=== PATIENT | male | born 1965 | race Hispanic/Latino ===

== ENCOUNTER 2023-12-20 15:47 | Inpatient (IN) | payer OTHER ==
[2023-12-20 16:40] LABS: #Basophils Less than 0.03 10x3/uL (0.0-0.2); #Eosinphils Less than 0.03 10x3/uL (0.0-0.7); %Basophils 0.1 % (0.0-1.0); %Eosinophils 0.1 % (0.0-10.0); %Lymphocytes 9.5 % (21.0-51.0); %Monocytes 9.8 % (0.0-10.0); %Neutrophils 80.1 % (42.0-75.0); Hematocrit 42.7 % (42.0-52.0); Hemoglobin 14.6 g/dL (14.0-18.0); Mean Corpuscular HGB CONC 34.2 g/dL (32.0-36.0); Mean Corpuscular Hemoglobin 29.9 pg (27.0-31.0); Mean Corpuscular Volume 87.3 fL (78.0-98.0); Mean Platelet Volume 9.5 fL (7.4-10.4); Platelet Count 341 10x3/uL (130-400); RBC Distribution Width 12.2 % (11.5-14.5); Red Blood Cell (RBC) Count 4.89 mill/uL (4.70-6.10)
[2023-12-20 16:57] LABS: ALT (SGPT) 45 U/L (8-55); AST (SGOT) 27 U/L (5-34); Albumin 3.5 g/dL (3.5-5.0); Alkaline Phosphatase 142 U/L (40-110); Anion Gap 16 mmol/L (10-20); BUN (Urea Nitrogen) 20 mg/dL (8.4-25.7); Bilirubin, Total 2.6 mg/dL (0.2-1.2); Calc. Creatinine Clearance 0 mL/min (70-130); Calcium 9.8 mg/dL (7.8-10.44); Carbon Dioxide 22 mmol/L (22-29); Chloride 105 mmol/L (98-107); Estimated GFR 60; Glucose 105 mg/dL (70-105); Lipase 16 U/L (8-78); Potassium 4.7 mmol/L (3.5-5.1); Protein, Total 8.5 g/dL (6.0-8.3); Sodium 138 mmol/L (136-145)
[2023-12-20 17:01] LABS: Troponin I Less than 0.010 ng/mL (< 0.028)
[2023-12-20] MEDS ORDERED: Piperacillin/Tazobactam 3.375 GM VIAL ONE (17:22)
[2023-12-20] MEDS ORDERED: Sodium Chloride 0.9% 100 ML ONE (17:23)
[2023-12-20] MEDS ORDERED: Promethazine HCl 25 MG/ML VIAL IM PRN (19:45)
[2023-12-20] MEDS ORDERED: Mag-Al 1200 mg/1200 mg/30 ML UDCUP PO PRN (19:45)
[2023-12-20] MEDS ORDERED: Acetaminophen 325 MG TAB PO PRN (19:45)
[2023-12-20] MEDS ORDERED: Ondansetron ODT 4 MG TAB SL PRN (19:45)
[2023-12-20] MEDS ORDERED: Dextrose 5% in Water 1,000 ML IV PRN (19:45)
[2023-12-20] MEDS ORDERED: Glucagon 1 MG/ML KIT IM PRN (19:45)
[2023-12-20] MEDS ORDERED: Calcium Carbonate 500 MG ChewTAB PO PRN (19:45)
[2023-12-20] MEDS ORDERED: hydrALAZINE 20 MG/ML VIAL SLOW IVP PRN (19:45)
[2023-12-20] MEDS ORDERED: Ondansetron PF 4 MG/2 ML Vial IVP PRN ×2 (19:45)
[2023-12-20] MEDS ORDERED: Dextrose 50% Abboject 50 ML SYRINGE SLOW IVP PRN (19:45)
[2023-12-20] MEDS ORDERED: Ipratropium/Albuterol 3 ML NEB NEB PRN (19:45)
[2023-12-20] MEDS: Sodium Chloride 0.9% 1,000 ML IV SCH (20:50)
[2023-12-20] MEDS: Lactated Ringer's 1,000 ML IV SCH (20:50)
[2023-12-20 22:08] LABS: Lactic Acid 0.8 mmol/L (0.5-2.2)
[2023-12-20 22:30] VITALS: BMI 30.4
[2023-12-20] MEDS: Piperacillin/Tazobactam 3.375 GM in Sodium Chloride 0.9% 100 ML IVPB SCH (23:10)
[2023-12-20] MEDS: Famotidine/PF 20 mg/2ml Vial SLOW IVP SCH (23:10)
[2023-12-21 05:00] LABS: #Basophils 0.02 10x3/uL (0.0-0.2); #Eosinphils 0.02 10x3/uL (0.0-0.7); #Monocytes 1.36 10x3/uL (0.11-0.59); #Neutrophils 10.86 10x3/uL (1.40-6.50); %Basophils 0.1 % (0.0-1.0); %Eosinophils 0.1 % (0.0-10.0); %Lymphocytes 7.8 % (21.0-51.0); %Monocytes 10.2 % (0.0-10.0); %Neutrophils 81.5 % (42.0-75.0); Hematocrit 41.6 % (42.0-52.0); Hemoglobin 14.2 g/dL (14.0-18.0); Mean Corpuscular HGB CONC 34.1 g/dL (32.0-36.0); Mean Corpuscular Hemoglobin 30.5 pg (27.0-31.0); Mean Corpuscular Volume 89.5 fL (78.0-98.0); Platelet Count 377 10x3/uL (130-400); RBC Distribution Width 12.4 % (11.5-14.5); Red Blood Cell (RBC) Count 4.65 mill/uL (4.70-6.10); White Blood Cell (WBC) Count 13.34 10x3/uL (4.8-10.8)
[2023-12-21 05:16] LABS: ALT (SGPT) 46 U/L (8-55); AST (SGOT) 28 U/L (5-34); Albumin 3.1 g/dL (3.5-5.0); Alkaline Phosphatase 141 U/L (40-110); Anion Gap 16 mmol/L (10-20); BUN (Urea Nitrogen) 21 mg/dL (8.4-25.7); Bilirubin, Total 2.3 mg/dL (0.2-1.2); Calc. Creatinine Clearance 79 mL/min (70-130); Calcium 9.3 mg/dL (7.8-10.44); Carbon Dioxide 18 mmol/L (22-29); Chloride 107 mmol/L (98-107); Estimated GFR 68; Globulin 4.7 g/dL (2.4-3.5); Glucose 102 mg/dL (70-105); Potassium 4.3 mmol/L (3.5-5.1); Protein, Total 7.8 g/dL (6.0-8.3); Sodium 137 mmol/L (136-145)
[2023-12-21] MEDS ORDERED: Bupivacaine 0.25% HCL 30 ML VIAL ONE (06:31)
[2023-12-21] MEDS ORDERED: EPINEPHrine 1 MG/ML VIAL ONE (06:31)
[2023-12-21] MEDS ORDERED: Iopamidol 30 ML ONE (06:31)
[2023-12-21] MEDS ORDERED: Sodium Chloride 0.9% 100 ML ONE (06:53)
[2023-12-21] MEDS ORDERED: Piperacillin/Tazobactam 3.375 GM VIAL ONE (06:53)
[2023-12-21] MEDS ORDERED: fentaNYL PF 100 MCG/2 ML SYRINGE ONE (07:00)
[2023-12-21] MEDS ORDERED: PROPOFOL 20 ML ONE (07:01)
[2023-12-21] MEDS ORDERED: Rocuronium Bromide 10 MG/ML (10ML VIAL) ONE (07:01)
[2023-12-21] MEDS ORDERED: Ondansetron PF 4 MG/2 ML Vial ONE (07:01)
[2023-12-21] MEDS ORDERED: Lidocaine 2% PF 100 mg/5 ml Syringe ONE (07:01)
[2023-12-21] MEDS ORDERED: Midazolam HCl 2 mg/2 ml Vial ONE (07:01)
[2023-12-21] MEDS ORDERED: SUGAMMADEX SODIUM 200 MG/2 ML VIAL ONE (07:01)
[2023-12-21] MEDS ORDERED: Dexamethasone 4 mg/ml Vial ONE (07:01)
[2023-12-21] MEDS ORDERED: PHENYLEPHRINE-NS 100 MCG/ML 10 ML SYRINGE ONE (07:01)
[2023-12-21] MEDS ORDERED: ePHEDrine Sulfate 50 MG/10 ML VIAL ONE (07:06)
[2023-12-21] MEDS ORDERED: fentaNYL 50 mcg/mL 1 mL Vial ONE ×4 (09:11→09:52)
[2023-12-21] MEDS: HYDROcodone/Acetaminophen 7.5/325 mg Tablet PO PRN (12:47)
[2023-12-21] MEDS: Morphine 4 MG/ML VIAL SLOW IVP PRN (15:28)
[2023-12-23 05:39] LABS: #Basophils Less than 0.03 10x3/uL (0.0-0.2); %Basophils 0.1 % (0.0-1.0); %Eosinophils 0.3 % (0.0-10.0); %Lymphocytes 14.6 % (21.0-51.0); %Monocytes 8.7 % (0.0-10.0); Hematocrit 34.4 % (42.0-52.0); Hemoglobin 11.4 g/dL (14.0-18.0); Mean Corpuscular HGB CONC 33.1 g/dL (32.0-36.0); Mean Corpuscular Hemoglobin 29.9 pg (27.0-31.0); Mean Corpuscular Volume 90.3 fL (78.0-98.0); Mean Platelet Volume 9.8 fL (7.4-10.4); Platelet Count 358 10x3/uL (130-400); RBC Distribution Width 12.8 % (11.5-14.5); Red Blood Cell (RBC) Count 3.81 mill/uL (4.70-6.10)
[2023-12-23 05:58] LABS: ALT (SGPT) 33 U/L (8-55); AST (SGOT) 15 U/L (5-34); Albumin 2.5 g/dL (3.5-5.0); Alkaline Phosphatase 84 U/L (40-110); Anion Gap 14 mmol/L (10-20); BUN (Urea Nitrogen) 14 mg/dL (8.4-25.7); Bilirubin, Total 0.7 mg/dL (0.2-1.2); Calc. Creatinine Clearance 116 mL/min (70-130); Calcium 8.2 mg/dL (7.8-10.44); Carbon Dioxide 21 mmol/L (22-29); Chloride 105 mmol/L (98-107); Estimated GFR 101; Globulin 3.7 g/dL (2.4-3.5); Glucose 90 mg/dL (70-105); Potassium 3.6 mmol/L (3.5-5.1); Protein, Total 6.2 g/dL (6.0-8.3); Sodium 136 mmol/L (136-145)
[2023-12-24] MEDS: Amoxicillin/Potassium Clav 875 MG TAB PO SCH (08:09)
[2023-12-24] MEDS: Metamucil PACK PO SCH (08:10)
[2023-12-24] MEDS: Senokot S 8.6-50 MG TAB PO SCH (08:11)
[2023-12-24 21:58] VITALS: BP 164/91; TEMP 98.2
== END 2023-12-24 20:21 | DRG 853 ==
LOC: EEVIPCON 15:47 → ERS 15:47 → SURG A 19:30
PROVIDERS: ADMIT Student in an Organized Health Care Education/Training Program; ATTEND Student in an Organized Health Care Education/Training Program
PROC: 0FT44ZZ Resection of Gallbladder, Percutaneous Endoscopic Approach (ICD-10-PCS; principal; 2023-12-21)
DX: A41.9 Sepsis, unspecified organism (principal); K65.1 Peritoneal abscess; K80.00 Calculus of gallbladder with acute cholecystitis without obstruction; I10 Essential (primary) hypertension; E78.5 Hyperlipidemia, unspecified; I25.10 Atherosclerotic heart disease of native coronary artery without angina pectoris; E66.9 Obesity, unspecified; K82.A1 Gangrene of gallbladder in cholecystitis; I25.2 Old myocardial infarction; Z68.30 Body mass index [BMI] 30.0-30.9, adult
CPT/HCPCS: 36415; 36416; 71045; 76705; 80053; 83605; 83690; 84484; 85025; 87040; 88300; 93005; 94760; 96374; C1889; J0171; J0665; J1100; J2001; J2250; J2270; J2405; J2543; J2704; J3010; J3490; J7050; J7120; Q9967; S0028